=== PATIENT | male | born 1960 | race Caucasian/White ===

== ENCOUNTER 2017-03-10 09:17 | Emergency (ER) | payer OTHER ==
--- NOTE | ~2017-03-10 | CR58 ---
[facility] A Service of [facility] & [facility] RADIOLOGY TEXT RESULTS PATIENT: SHWETHA OLIVA I LOCATION: [facility] : 58 UNIT #: [id number] AGE: [address]: MANUEL DOE SEX: M ORDER DR: [id number] [facility] [address] [place], [place] [address] [id number] E MR#: [id number] Acc #: [id number] NAME: SHWETHA OLIVA I. : 1960 SEX: M STUDY DATE/TIME: 03/10/2017 9:58 UNIT: [facility] ROOM: STUDY DESCRIPTION: CR Cervical Spine 2 or 3 Views Attending Physician: Manuel Doe Aprn Ordering Physician: Manuel Doe Aprn Primary Care Physician: J Luis Messer M.D. MEDICAL IMAGING REPORT This report is preliminary unless electronic signature is present EXAM Cervical spine series, 03/10/2017 HISTORY Trauma; fell down steps. Right shoulder pain, neck pain. Happened today. FINDINGS AP, lateral, and open-mouth odontoid views of the cervical spine are presented. Evidence prior open reduction and internal fixation of left clavicle. The visualized orthopedic hardware is intact. Cervical spine alignment is normal. Vertebral body heights are normal. Moderate disc space narrowing, C6-C7. Multiple anterior osteophyte formations. Facet joint relationships appear normal. The C1-C2 relationship is normal. Bony overlap prevents full evaluation of the odontoid process in the frontal projection. The visualized portions of the odontoid process are normal. Repeat open-mouth odontoid view and/or submental vertex view recommended for full clearance in context of trauma. Prevertebral soft tissues are unremarkable. Lung apices clear. Dictated by... Leonard Prakash M.D. THIS IS AN ELECTRONICALLY VERIFIED REPORT Leonard Prakash M.D. at 03/15/2017 6:37 PM SOURAV/delio TD: 03/10/2017 11:32 JOB #: [id number] MEDICAL IMAGING REPORT Page 1 of 1 COPY
--- NOTE | ~2017-03-10 | CR230 ---
[facility] A Service of [facility] & [facility] RADIOLOGY TEXT RESULTS PATIENT: SHWETHA OLIVA I LOCATION: [facility] : 58 UNIT #: [id number] AGE: [address]: MANUEL DOE SEX: M ORDER DR: [id number] [facility] [address] [place], [place] [address] [id number] E MR#: [id number] Acc #: [id number] NAME: SHWETHA OLIVA I. : 1960 SEX: M STUDY DATE/TIME: 03/10/2017 9:18 UNIT: [facility] ROOM: STUDY DESCRIPTION: CR Shoulder Min 2 View Rt Attending Physician: Manuel Doe Aprn Ordering Physician: Manuel Doe Aprn Primary Care Physician: J Luis Messer M.D. MEDICAL IMAGING REPORT This report is preliminary unless electronic signature is present EXAM Right shoulder series, 03/10/17 HISTORY Trauma. Right shoulder pain one week. Fell down stairs today. FINDINGS The internal and external rotation views of the right shoulder are presented with transscapular view. No traumatic fracture or malalignment. Qrhm-jd-jueflrqa degenerative change of the acromioclavicular joint. Mild degenerative change of glenohumeral joint. Visualized bony thorax shows no acute abnormality. Visualized pulmonary parenchyma clear. Periarticular soft tissues unremarkable. Configuration of the right sixth rib on the transscapular view raises the possibility of old healed right anterolateral sixth rib fracture. No acute appearing rib abnormality. Dictated by... Leonard Prakash M.D. THIS IS AN ELECTRONICALLY VERIFIED REPORT Leonard Prakash M.D. at 03/15/2017 6:37 PM SOURAV/farzaneh TD: 03/10/2017 10:10 JOB #: [id number] MEDICAL IMAGING REPORT Page 1 of 1 COPY
[~2017-03-10 09:17] MED LIST: ASPIRIN PO; BACTRIM 400-801 TA1 PO; DEPAKOTE PO; DICLOFENAC PO; DIFLUNISAL500 MG PO; FLEXERIL PO; FLEXERIL10 M1 PO; FLEXERIL10 MG PO; GLUCOPHAGE XR500 MG PO; GLUCOPHAGE500 MG PO; GLUCOTROL XL PO; GLUCOTROL10 MG PO; IBUPROFEN PO; IBUPROFEN800 MG PO; KEFLEX500 M1 PO; KEFLEX500 MG PO; KLONOPIN PO; LISINOPRIL PO; LORTAB 10-5001 EACH PO; LORTAB 10/500 T1 TAB PO; LORTAB 101 TAB 10/5 PO; LORTAB 2.5/5001 TAB PO; LORTAB 5/500 TA1 TA1 PO; LORTAB 5/500 TA1 TA2 PO; LORTAB 7.5-5001 TAB PO; MEDROL DOSEPAK4 MG DOB; MEDROL DOSEPAK4 MG PO; MEDROL4 MG/DOSE- PO; METFORMIN PO; MOBIC PO; MOBIC15 MG PO; NAPROSYN500 MG PO; NO MEDICATIONS; NORCO 5/325 TAB1 TAB PO; PERCOCET 51 UDTAB 5/ DOB; PREDNISONE10 MG/DOSE PO; ROBAXIN PO; ROBAXIN500 MG PO; SEROQUEL PO; SKELAXIN PO; TYLENOL #3 PO; TYLOX 5/500 CAP1 CAP PO; ULTRAM PO; VICODIN 5/1 TAB 5/50 PO; VICODIN 5/500 T1 TAB PO; VICODIN PO; VOLTAREN50 MG PO; VOLTAREN75 MG PO; ZITHROMAX PO
== END 2017-03-10 10:45 | disposition home or self-care (01) ==
LOC: CED 09:17
DX: S16.1XXA Strain of muscle, fascia and tendon at neck level, initial encounter (principal); S30.0XXA Contusion of lower back and pelvis, initial encounter; S50.812A Abrasion of left forearm, initial encounter; S50.811A Abrasion of right forearm, initial encounter; E11.9 Type 2 diabetes mellitus without complications; F17.210 Nicotine dependence, cigarettes, uncomplicated; W01.0XXA Fall on same level from slipping, tripping and stumbling without subsequent striking against object, initial encounter
CPT/HCPCS: 72040; 73030; 96372; 99284; J1885

== ENCOUNTER 2017-03-31 12:49 | Emergency (ER) | payer OTHER ==
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
== END 2017-03-31 14:39 | disposition home or self-care (01) ==
LOC: CED 12:49 → CFTX 12:49
DX: S62.301A Unspecified fracture of second metacarpal bone, left hand, initial encounter for closed fracture (principal); F17.210 Nicotine dependence, cigarettes, uncomplicated; W22.8XXA Striking against or struck by other objects, initial encounter; Y92.69 Other specified industrial and construction area as the place of occurrence of the external cause
CPT/HCPCS: 29125; 73130; 99283

== ENCOUNTER 2017-05-07 12:39 | Emergency (ER) | payer OTHER ==
--- NOTE | ~2017-05-07 | CT4 ---
[facility] A Service of [facility] & [facility] RADIOLOGY TEXT RESULTS PATIENT: SHWETHA OLIVA I LOCATION: [facility] : 58 UNIT #: [id number] AGE: [address]: Eleazar Chaves MD SEX: M ORDER DR: [id number] [facility] [address] [place], [place] [address] [id number] E MR#: [id number] Acc #: [id number] NAME: SHWETHA OLIVA I. : 1960 SEX: M STUDY DATE/TIME: 05/07/2017 14:29 UNIT: [facility] ROOM: STUDY DESCRIPTION: CT Abd and Pelv Wo Cont Attending Physician: Eleazar Chaves M.D. Ordering Physician: Eleazar Chaves M.D. Primary Care Physician: J Luis Messer M.D. MEDICAL IMAGING REPORT This report is preliminary unless electronic signature is present EXAM CT abdomen and pelvis, noncontrast, 05/07/2017. HISTORY 56-year-old male in the ED complaining of a 2-day history of midabdomen pain, nausea and vomiting. History of umbilical hernia repair surgery. TECHNIQUE CT examination of the abdomen and pelvis was performed without oral or IV contrast. This CT exam was performed with one or more of the following radiation dose reduction techniques: automatic exposure control, adjustment of mA and/or kV according to patient size, and iterative reconstruction. FINDINGS ABDOMEN FINDINGS: Postop changes previous midline umbilical hernia repair surgery. There is diastases of the rectus musculature at the umbilicus with outward bulging of the thin midline abdominal wall and thick platelike subcutaneous scarring overlying the region of surgery. No abscess or other fluid collection. Mildly distended gallbladder. No bile duct dilatation. Liver, pancreas, and spleen are normal in size and appearance. No visible nephrolithiasis or evidence of urinary obstruction. Small bowel and colon are normal in caliber and appearance, as imaged. The appendix is normal. Normal-caliber abdominal aorta. PELVIS FINDINGS: Bladder, prostate, and rectum are within normal limits. Limited lung base images show no active disease in the lower chest. IMPRESSION 1. No acute abnormality within the abdomen or pelvis. [facility] A Service of [facility] RADIOLOGY TEXT RESULTS PATIENT: SHWETHA OLIVA I LOCATION: [facility] : 58 UNIT #: [id number] AGE: [address]: Eleazar Chaves MD SEX: M ORDER DR: 2. Extensive postop changes previous umbilical region hernia repair surgery. In the region of surgery, there is broad diastases of the rectus musculature with outward bulging of thin midline abdominal wall, and there is platelike subcutaneous fibrotic scarring overlying the region of surgery. No evidence of abscess or active inflammation in this region. 3. Normal appendix. No visible nephrolithiasis or evidence of urinary obstruction. 4. The gallbladder appears mildly distended. There is no bile duct dilatation. Dictated by... Bigg Washington M.D. THIS IS AN ELECTRONICALLY VERIFIED REPORT Bigg Washington M.D. at 05/07/2017 10:23 PM VERAW/lanette TD: 05/07/2017 17:27 JOB #: [id number] MEDICAL IMAGING REPORT Page 1 of 1 COPY
[2017-05-07 13:24] LABS: URINE SOURCE CLEAN CATCH
[2017-05-07 13:48] LABS: BASOPHIL% 0.3 % (0-2.5); EOSINOPHIL# 0.1 X10e3 (0-0.7); EOSINOPHIL% 1.9 % (0.0-7.0); HEMATOCRIT 47.4 % (38.0-50.0); HEMOGLOBIN 15.7 gm/dL (13.0-16.0); LYMPHOCYTE# 1.2 X10e3 (1.0-3.5); LYMPHOCYTE% 19.3 % (17.0-45.0); MEAN CELL VOLUME 88.2 FL (83-96); MEAN CORPUSCULAR HEMOGLOBIN 29.1 PG (28-34); MEAN PLATELET VOLUME 9.1 FL (6.5-11.5); MONOCYTE# 0.4 X10e3 (0-1.0); MONOCYTE% 6.1 % (3.0-12.0); NEUTROPHIL# 4.5 X10e3 (1.5-7.1); NEUTROPHIL% 72.4 % (40-75); PLATELET COUNT 172 X10e3 (140-420); RED BLOOD COUNT 5.37 X10e (3.90-5.60); RED CELL DISTRIBUTION WIDTH 14.1 % (11.0-15.5); WHITE BLOOD COUNT 6.2 X10e3 (4.0-10.5)
[2017-05-07 13:49] LABS: DIFF IND NO
[2017-05-07 13:54] LABS: URINE APPEARANCE CLEAR; URINE BILIRUBIN NEG (NEG); URINE BLOOD NEG (NEG); URINE COLOR YELLOW; URINE GLUCOSE NEG (NEG); URINE KETONE NEG (NEG); URINE LEUKOCYTE ESTERASE NEG (NEG); URINE NITRATE NEG (NEG); URINE PROTEIN NEG (NEG)
[2017-05-07 14:00] LABS: CULTURE INDICATED? NO
[2017-05-07 14:13] LABS: ALBUMIN SERUM 4.1 g/dL (3.5-5.0); BILIRUBIN, DIRECT 0.1 mg/dL (0.0-0.2); BILIRUBIN,INDIRECT 0.4 mg/dL (0.0-0.9); BILIRUBIN,TOTAL 0.5 mg/dL (0.2-2.0); BUN/CREATININE RATIO 12.5; CALCIUM SERUM 9.3 mg/dL (8.4-10.2); CREATININE SERUM 0.8 mg/dL (0.6-1.4); GLOM FILT RATE Estimated 99.2 mL/min (>60); POTASSIUM 4.4 mmol/L (3.5-5.1); PROTEIN TOTAL SERUM 7.2 g/dL (6.0-8.3)
== END 2017-05-07 15:42 | disposition home or self-care (01) ==
LOC: CED 12:39
DX: R10.32 Left lower quadrant pain (principal); R11.2 Nausea with vomiting, unspecified; F17.200 Nicotine dependence, unspecified, uncomplicated
CPT/HCPCS: 36415; 74176; 80048; 80076; 81003; 83690; 85025; 96361; 96374; 96375; 99284; J1170; J1885; J2405

== ENCOUNTER 2017-05-16 14:40 | Emergency (ER) | payer OTHER ==
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
--- NOTE | ~2017-05-16 | CT71 ---
[facility] A Service of [facility] RADIOLOGY TEXT RESULTS PATIENT: SHWETHA OLIVA I LOCATION: [facility] : 58 UNIT #: [id number] AGE: [address]: Cholo Vegas MD SEX: M ORDER DR: [id number] [facility] [address] [place], [place] [address] [id number] E MR#: [id number] Acc #: [id number] NAME: SHWETHA OLIVA I. : 1960 SEX: M STUDY DATE/TIME: 05/16/2017 17:51 UNIT: [facility] ROOM: STUDY DESCRIPTION: CT Head Wo Contrast Attending Physician: Jean Vegas M.D. Ordering Physician: Jake Rivera M.D. Primary Care Physician: J Luis Messer M.D. MEDICAL IMAGING REPORT This report is preliminary unless electronic signature is present EXAM CT head without contrast, 05/16/2017 HISTORY 56-year-old male with headache beginning last night. Left arm numbness. COMPARISON CT head, 09/23/2016 TECHNIQUE Routine unenhanced axial images performed through the brain. This CT exam was performed with one or more of the following radiation dose reduction techniques: Automatic exposure control, adjustment of mA and/or kV according to patient size, and iterative reconstruction. FINDINGS No hemorrhage, acute infarction, mass lesion, or abnormal extraaxial fluid collection. No midline shift or focal mass effect. Ventricular system is normal in size and configuration. Mild generalized atrophy is stable. No acute bony abnormality. Visualized paranasal sinuses and mastoid air cells are clear. IMPRESSION No acute intracranial abnormality. No change from 09/23/2016. Dictated by... Taj Mulligan M.D. THIS IS AN ELECTRONICALLY VERIFIED REPORT Taj Mulligan M.D. at 05/17/2017 10:24 AM ABIGAIL/efra [facility] A Service of [facility] RADIOLOGY TEXT RESULTS PATIENT: SHWETHA OLIVA I [id number] 58 UNIT #: [id number] AGE: [address]: Cholo Vegas MD SEX: M ORDER DR: TD: 05/16/2017 18:53 JOB #: [id number] MEDICAL IMAGING REPORT Page 1 of 1 COPY
[2017-05-16 16:22] LABS: URINE SOURCE CLEAN CATCH
[2017-05-16 16:27] LABS: URINE APPEARANCE CLEAR; URINE BILIRUBIN NEG (NEG); URINE BLOOD NEG (NEG); URINE COLOR YELLOW; URINE GLUCOSE NEG (NEG); URINE KETONE NEG (NEG); URINE LEUKOCYTE ESTERASE NEG (NEG); URINE NITRATE NEG (NEG); URINE PH 6.5 (5-8); URINE PROTEIN NEG (NEG); URINE SPECIFIC GRAVITY 1.003 (1.003-1.035); URINE UROBILINOGEN 0.2 MG/DL (NEG)
[2017-05-16 16:27] LABS: BASOPHIL% 0.4 % (0-2.5); EOSINOPHIL% 0.5 % (0.0-7.0); HEMATOCRIT 46.7 % (38.0-50.0); HEMOGLOBIN 15.4 gm/dL (13.0-16.0); LYMPHOCYTE# 1.5 X10e3 (1.0-3.5); LYMPHOCYTE% 16.3 % (17.0-45.0); MEAN CELL VOLUME 87.7 FL (83-96); MEAN CORPUSCULAR HEMOGLOBIN 28.9 PG (28-34); MEAN PLATELET VOLUME 9.6 FL (6.5-11.5); MONOCYTE# 0.5 X10e3 (0-1.0); MONOCYTE% 5.9 % (3.0-12.0); NEUTROPHIL# 7.2 X10e3 (1.5-7.1); NEUTROPHIL% 76.9 % (40-75); PLATELET COUNT 163 X10e3 (140-420); RED BLOOD COUNT 5.32 X10e (3.90-5.60); RED CELL DISTRIBUTION WIDTH 14.1 % (11.0-15.5); WHITE BLOOD COUNT 9.3 X10e3 (4.0-10.5)
[2017-05-16 16:37] LABS: CULTURE INDICATED? NO
[2017-05-16 16:37] LABS: DIFF IND NO
[2017-05-16 16:51] LABS: ALBUMIN SERUM 4.2 g/dL (3.5-5.0); BILIRUBIN, DIRECT 0.2 mg/dL (0.0-0.2); BILIRUBIN,INDIRECT 0.2 mg/dL (0.0-0.9); BILIRUBIN,TOTAL 0.4 mg/dL (0.2-2.0); BUN/CREATININE RATIO 11.42; CREATININE SERUM 0.7 mg/dL (0.6-1.4); GLOM FILT RATE Estimated 104.8 mL/min (>60); POTASSIUM 3.8 mmol/L (3.5-5.1); PROTEIN TOTAL SERUM 6.8 g/dL (6.0-8.3)
== END 2017-05-16 19:30 | disposition home or self-care (01) ==
LOC: CED 14:40
PROVIDERS: Emergency Medicine
DX: R10.84 Generalized abdominal pain (principal); R10.32 Left lower quadrant pain; R51 Headache; E11.9 Type 2 diabetes mellitus without complications; F32.9 Major depressive disorder, single episode, unspecified; Z98.890 Other specified postprocedural states
CPT/HCPCS: 36415; 70450; 74177; 80048; 80076; 81003; 82150; 82947; 83690; 85025; 96361; 96374; 96375; 99284; J1170; J2270; J2405; Q9967

== ENCOUNTER 2017-07-15 16:15 | Emergency (ER) | payer OTHER ==
[~2017-07-15] VITALS: Ht 190.5 cm; Wt 104.3 kg
--- NOTE | ~2017-07-15 | CT2 ---
[facility] A Service of [facility] & [facility] RADIOLOGY TEXT RESULTS PATIENT: SHWETHA OLIVA I LOCATION: [facility] : 58 UNIT #: [id number] AGE: [address]: Carola Gruber MD SEX: M ORDER DR: [id number] [facility] [address] [place], [place] [address] [id number] E MR#: [id number] Acc #: [id number] NAME: SHWETHA OLIVA I. : 1960 SEX: M STUDY DATE/TIME: 07/15/2017 20:36 UNIT: [facility] ROOM: STUDY DESCRIPTION: CT Abd and Pelv W Cont Attending Physician: Carola Gruber M.D. Ordering Physician: Carola Gruber M.D. Primary Care Physician: J Luis Messer M.D. MEDICAL IMAGING REPORT This report is preliminary unless electronic signature is present EXAM CT of the abdomen and pelvis with contrast. INDICATION Severe abdominal pain. Patient had hernia surgery 3 weeks ago and has had lower abdominal pain since the surgery. TECHNIQUE Axial CT images were obtained from the dome of the diaphragm through symphysis pubis following the administration of intravenous contrast material. This CT exam was performed with one or more of the following radiation dose reduction techniques: automatic exposure control, adjustment of mA and/or kV according to patient size, and iterative reconstruction. FINDINGS Patient has some tree-in-bud infiltrate seen within the right lower lobe as well as some patchy bibasilar scarring versus atelectasis, right greater than left. Spleen appears unremarkable. There is probably a small hiatal hernia. Proximal small bowel is within normal limits. There is a right adrenal nodule which was characteristic of a lipid-rich adenoma on recent CT from May 07, 2017. Left renal gland appears unremarkable as is the pancreas. This patient's gallbladder is distended, but the appearance is stable when compared to the exam from May 07, 2017. I do not see any definite gallbladder wall thickening or pericholecystic fluid and certainly no stones are identified within the gallbladder. Liver appears unremarkable as are the kidneys. There is no evidence of mechanical bowel obstruction. This patient is status post ventral hernia repair. There is a large fluid collection identified within the anterior abdominal wall anterior to the repair, which measures up to about 16.1 x 5.1 cm. It really does not show any significant rim enhancement and I suspect it reflects a postoperative seroma, rather than an abscess, but [facility] A Service of [facility] & [facility] RADIOLOGY TEXT RESULTS PATIENT: SHWETHA OLIVA I LOCATION: [facility] : 58 UNIT #: [id number] AGE: [address]: Carola Gruber MD SEX: M ORDER DR: certainly correlation with physical exam findings is suggested. It measures up to 14.6 cm in length. Prostate gland contains a few dystrophic calcifications. Urinary bladder appears unremarkable. Fairly extensive fecal burden is seen throughout the colon which could reflect some constipation. The appendix is visualized and is within normal limits. No free fluid or adenopathy is seen within the pelvis. There is atherosclerotic involvement of the abdominal aorta. Review of bony windows does not demonstrate any aggressive osseous abnormalities. IMPRESSION 1. Since prior examination, this patient has undergone ventral hernia repair. Anterior to the right repair, the patient has developed a large fluid collection measuring up to 16.1 x 5.1 cm and up to 14.6 cm in length. It really does not show any significant rim enhancement and I suspect it reflects a postoperative seroma, but certainly correlation with physical exam findings is suggested. I do not see any evidence of recurrent hernia and there is no evidence of mechanical bowel obstruction. 2. Patient does have fairly extensive fecal burden seen throughout the colon. Correlation with history of constipation is recommended. 3. Small hiatal hernia. 4. Lipid-rich right adrenal adenoma. 5. Patient's gallbladder appears distended. It does not, however, appear thick-walled and no stones are identified within the gallbladder, similar findings were present in April 2017. Dictated by... Kerry Small M.D. THIS IS AN ELECTRONICALLY VERIFIED REPORT Kerry Small M.D. at 07/16/2017 5:48 PM AFF/tmw TD: 07/16/2017 12:27 JOB #: [id number] MEDICAL IMAGING REPORT Page 1 of 1 COPY
[2017-07-15 17:17] LABS: BASOPHIL% 0.7 % (0-2.5); EOSINOPHIL# 0.2 X10e3 (0-0.7); EOSINOPHIL% 3.1 % (0.0-7.0); HEMATOCRIT 42.6 % (38.0-50.0); HEMOGLOBIN 14.4 gm/dL (13.0-16.0); LYMPHOCYTE# 1.5 X10e3 (1.0-3.5); LYMPHOCYTE% 23.6 % (17.0-45.0); MEAN CELL VOLUME 88.6 FL (83-96); MEAN CORPUSCULAR HEMOGLOBIN 29.9 PG (28-34); MEAN CORPUSCULAR HGB CONC 33.7 g/dL (30-36); MEAN PLATELET VOLUME 8.7 FL (6.5-11.5); MONOCYTE# 0.7 X10e3 (0-1.0); MONOCYTE% 10.6 % (3.0-12.0); NEUTROPHIL# 3.9 X10e3 (1.5-7.1); PLATELET COUNT 245 X10e3 (140-420); RED BLOOD COUNT 4.81 X10e (3.90-5.60); WHITE BLOOD COUNT 6.3 X10e3 (4.0-10.5)
[2017-07-15 17:19] LABS: DIFF IND NO
[2017-07-15 17:39] LABS: ALBUMIN SERUM 3.9 g/dL (3.5-5.0); BILIRUBIN, DIRECT 0.1 mg/dL (0.0-0.2); BILIRUBIN,INDIRECT 0.1 mg/dL (0.0-0.9); BILIRUBIN,TOTAL 0.2 mg/dL (0.2-2.0); CALCIUM SERUM 8.9 mg/dL (8.4-10.2); GLOM FILT RATE Estimated 83.2 mL/min (>60); POTASSIUM 4.2 mmol/L (3.5-5.1); PROTEIN TOTAL SERUM 7.3 g/dL (6.0-8.3)
[2017-07-15 19:12] LABS: URINE SOURCE CLEAN CATCH
[2017-07-15 19:20] LABS: URINE APPEARANCE CLEAR; URINE BILIRUBIN NEG (NEG); URINE BLOOD NEG (NEG); URINE COLOR YELLOW; URINE GLUCOSE NEG (NEG); URINE KETONE NEG (NEG); URINE LEUKOCYTE ESTERASE NEG (NEG); URINE NITRATE NEG (NEG); URINE PH 5.5 (5-8); URINE PROTEIN NEG (NEG); URINE SPECIFIC GRAVITY 1.011 (1.003-1.035); URINE UROBILINOGEN 0.2 MG/DL (NEG)
[2017-07-15 19:27] LABS: CULTURE INDICATED? NO
== END 2017-07-15 22:15 | disposition home or self-care (01) ==
LOC: CED 16:15
PROVIDERS: Emergency Medicine
DX: G89.18 Other acute postprocedural pain (principal); Z88.5 Allergy status to narcotic agent; F17.200 Nicotine dependence, unspecified, uncomplicated
CPT/HCPCS: 36415; 74177; 80048; 80076; 81003; 83690; 85025; 96374; 96375; 99284; J1885; J2270; J2405; Q9967